=== PATIENT | male | born 1955 | race Caucasian/White ===

== ENCOUNTER → 2016-12-25 | Outpatient (CLI) | payer MEDICARE, OTHER ==
[~2016-12-25] MED LIST: ACHD5005 PO; ASP81TEC PO; HCT25T PO; HYDR118S10 PO; HYDR1TAB66 PO; IBUP800T26 PO; LISI20TA PO; LISI5TAB PO; METO50TA7 PO; MTP25TSR PO; MULT-974 PO; NAPR-243 PO; OMEG1CAP24 PO; ONDA-42 SL; PRAV40TA PO; PRV20T GT; SERT50TA PO; TRZ100T PO
--- OUTSIDE RECORDS SUMMARY | 2016-12-25 10:55 | XMS REPORT | Continuity of Care Document ---
Author Author Interface Organization Interface Address Unknown Phone Unavailable Problems Problem Status Onset Date Classification Date Reported Comments Source Overweight (finding) Active Problem 05/15/2014 <sup>1</sup>Added based on documentation of BMI=26.7. [facility] Medications Medication Details Route Status Patient Instructions Ordering Provider Order Date Source ciprofloxacin 500 mg oral tablet =500 mg, 1 tab, PO, Q12H, X 7 Days, # 14 tab, 1 Refill(s) Inactive [facility] Ciprodex otic suspension 4 Drop, Each Affected Ear, BID, # 7.5 mL, 1 Refill(s) Inactive [facility] Zoloft 100 mg oral tablet mg, tab, PO, Daily Active [facility] Mobic PO, Daily Active [facility] Robaxin mg Active [facility] Medrol Dosepak Active [facility] flax Active [facility] Fish Oil PO Active [facility] multivitamin Daily Active [facility] Toprol XL PO, Daily Active [facility] tizanidine PO Active [facility] Benadryl Active [facility] gabapentin 300 mg oral capsule mg, cap, PO, TID Active [facility] acetaminophen-hydrocodone 325 mg-7.5 mg oral tablet tab, PO, Q6H Active [facility] Aspirin Low Dose 81 mg oral tablet Active [facility] trazodone PO Active [facility] naproxen PO Active [facility] ibuprofen Active [facility] Allergies, Adverse Reactions, Alerts Substance Category Reaction Severity Reaction type Status Date Reported Comments Source meperidine drug allergy Allergy Active <sup>1</sup>Causes GI distress [facility] Immunizations Immunization Date Given Site Status Last Updated Comments Source Results Order Name Results Value Reference Range Date Interpretation Comments Source Patient Viewable Results GFR -Yemeni POC null >=60 04/29/2014 <sup>1</sup> Result Note: Resulted by GLB_POC_GFR rule. [facility] Patient Viewable Results GFR Non -Yemeni POC null >=60 04/29/2014 <sup>2</sup >Result Note: Resulted by GLB_POC_GFR rule. [facility] Patient Viewable Results Creatinine POC 0.9 mg/dL 0.6 - 1.3 04/29/2014 [facility] Vital Signs Vital Sign Value Date Comments Source Heart Rate 78 bpm 04/21/2014 [facility] Temperature Oral 98.5 [degF] 04/21/2014 [facility] Diastolic BP 89 mmHg 2013 [facility] Systolic BP 137 mmHg 2013 [facility] Heart Rate 72 bpm 04/16/2014 [facility] Temperature Oral 98.5 [degF] 04/16/2014 [facility] Diastolic BP 83 mmHg 2013 [facility] Systolic BP 137 mmHg 2013 [facility] BP Site Right Arm </br>(04/16/2014 13:38:00) <sup> </sup> 04/16/2014 [facility] Cuff Size Adult Regular Cuff </br>(04/16/2014 13:38:00) <sup> </sup> 04/16/2014 [facility] Resp. Rate 16 BRMIN 2013 [facility] Systolic BP 133 mmHg 2013 [facility] Heart Rate 80 bpm 04/29/2014 [facility] Cuff Size Adult Large Cuff </br>(04/29/2014 15:10:00) <sup> </sup> 04/29/2014 [facility] BP Site Left Arm </br>(04/29/2014 15:10:00) <sup> </sup> 04/29/2014 [facility] Diastolic BP 85 mmHg 2013 [facility] Temperature Oral 98.8 [degF] 04/29/2014 [facility] Encounters Location Location Details Encounter Type Encounter Number Reason For Visit Attending Provider ADM Date DC Date Status Source Procedures Procedure Code Date Perfomer Comments Source
--- NOTE | 2016-12-25 12:31 | Diagnostic Imaging Report ---
PROCEDURE: CT lumbar spine without contrast. TECHNIQUE: Multiple contiguous axial images were obtained through the lumbar spine without the use of intravenous contrast. Sagittal and coronal reformations were then performed. INDICATION: Back pain. FINDINGS: There is postsurgical change with anterior fusion, cage placement, and interbody osseous bridging seen involving levels L2 through L5 vertebral bodies. At these levels, there are also transpedicular screws with connecting rods seen. There is a screw that appears to have been removed with two screw tracts seen through the transpedicular region on the right side at the L4 level. Bone graft material is also seen around the posterior elements on the right side. There is also laminectomy performed at these levels from L2/3 to L4/5. The right L3/4 and L4/5 facet joints demonstrate osseous fusion. There is fused osseous graft also bridging the remaining posterior elements on the right side of L2 and L3. On the left, no definitive osseous bridging is seen except the left facet joint at L4/5. At L2/3, there is remaining posterior osteophyte from the lower endplate of L2 to the right side of the midline with possible underlying spinal canal stenosis at this level, just above and laminectomy. The vertebral body heights are preserved. There is vacuum phenomenon at L5/S1. No significant disc height loss at any level. There is posterior osteophyte formation at L5/S1 with calcified annulus along the left foramen. There is a suggestion of bilateral foraminal stenosis at L5/S1 of [id number] degree. IMPRESSION: 1. Postsurgical anterior and posterior fusion with laminectomy involving L2 through L5 levels. 2. There is a diffuse disc bulge at L5/S1 level with no obvious high-grade spinal canal stenosis on this study without intrathecal contrast. The foramina at this level demonstrate [id number] stenosis bilaterally. 3. There is remaining posterior osteophyte at the L2/3 level with a question of spinal canal stenosis, particularly at the right side of the spinal canal at this level. Dictated by: Dictated on workstation # [id number]
== END ==
LOC: RAD 10:51
PROVIDERS: ATTEND Orthopaedic Surgery Orthopaedic Surgery of the Spine
DX: Z48.89 Encounter for other specified surgical aftercare (principal); Z98.1 Arthrodesis status
CPT/HCPCS: 72131

== ENCOUNTER → 2017-01-30 | Outpatient (CLI) | payer MEDICARE, OTHER ==
--- OUTSIDE RECORDS SUMMARY | 2017-01-30 10:07 | XMS REPORT | Continuity of Care Document ---
Author Author Ashanti Burrell Address Unknown Phone Unavailable Care Team Providers Care Video Producer Name Role Phone [employer] Unavailable Unavailable Problems Problem Status Onset Date Classification Date Reported Comments Source Overweight (finding) Active Problem 05/15/2014 1Added based on documentation of BMI=26.7. [facility] Medications Medication Details Route Status Patient Instructions Ordering Provider Order Date Source flax Active [facility] Fish Oil PO Active [facility] multivitamin Daily Active [facility] Toprol XL PO, Daily Active [facility] tizanidine PO Active [facility] Benadryl Active [facility] gabapentin 300 mg oral capsule mg, cap, PO, TID Active [facility] acetaminophen-hydrocodone 325 mg-7.5 mg oral tablet tab, PO, Q6H Active [facility] Aspirin Low Dose 81 mg oral tablet Active [facility] trazodone PO Active [facility] naproxen PO Active [facility] ibuprofen Active [facility] ciprofloxacin 500 mg oral tablet =500 mg, 1 tab, PO, Q12H, X 7 Days, # 14 tab, 1 Refill(s) Inactive [facility] Ciprodex otic suspension 4 Drop, Each Affected Ear, BID, # 7.5 mL, 1 Refill(s) Inactive [facility] Zoloft 100 mg oral tablet mg, tab, PO, Daily Active [facility] Mobic PO, Daily Active [facility] Robaxin mg Active [facility] Medrol Dosepak Active [facility] Allergies, Adverse Reactions, Alerts Substance Category Reaction Severity Reaction type Status Date Reported Comments Source meperidine drug allergy Allergy Active 1Causes GI distress [facility] Immunizations Results Order Name Results Value Reference Range Date Interpretation Comments Source Patient Viewable Results GFR -Kosovan POC null >=60 04/29/2014 1Result Note: Resulted by GLB_POC_GFR rule. [facility] Vital Signs Vital Sign Value Date Comments Source Systolic BP 133 mmHg 2013 [facility] Heart Rate 80 bpm 04/29/2014 [facility] Cuff Size Adult Large Cuff </br>(04/29/2014 15:10:00) <sup> </sup> 04/29/2014 [facility] BP Site Left Arm </br>(04/29/2014 15:10:00) <sup> </sup> 04/29/2014 [facility] Diastolic BP 85 mmHg 2013 [facility] Temperature Oral 98.8 [degF] 04/29/2014 [facility] Heart Rate 78 bpm 04/21/2014 [facility] Temperature Oral 98.5 [degF] 04/21/2014 [facility] Diastolic BP 89 mmHg 2013 [facility] Systolic BP 137 mmHg 2013 [facility] Heart Rate 72 bpm 04/16/2014 [facility] Temperature Oral 98.5 [degF] 04/16/2014 [facility] Diastolic BP 83 mmHg 2013 [facility] Systolic BP 137 mmHg 2013 [facility] BP Site Right Arm </br>(04/16/2014 13:38:00) <sup> </sup> 04/16/2014 [facility] Cuff Size Adult Regular Cuff </br>(04/16/2014 13:38:00) <sup> </sup> 04/16/2014 [facility] Resp. Rate 16 BRMIN 2013 [facility] Encounters Procedures Plan of Care Social History Assessment and Plan Family History Value Date Source Advance Directives Order Name Results Value Date Source
--- NOTE | 2017-01-31 08:32 | ECHOCARDIOGRAPHY REPORT ---
PROCEDURE PHYSICIAN: BRITNEY PEARSON DATE OF PROCEDURE: 01/30/2017 TWO DIMENSIONAL ECHOCARDIOGRAM REPORT PRIMARY PHYSICIAN: OTHER PHYSICIAN: REFERRING PHYSICIAN: Dr. العلي ORDERING PHYSICIAN: INDICATION FOR THE PROCEDURE: 1. Chest pain. 2. Dyspnea. MEASUREMENTS DERIVED VALUES LV DIAMETER (LAX) NORMALS NORMALS Diastolic 5.4 (3.6-5.2) Eject. Fract. 60% (60%+/-6%) Systolic (2.3-3.9) Diastolic Vol. % Shortening (0.22-0.42) Systolic Vol. Aortic Root IVS THICKNESS Diastolic 1 (0.6-1.1) LVPW THICKNESS Diastolic 1 (0.6-1.1) LA DIAMETER Systolic 3.5 (2.1-3.7) FINDINGS: 1. Technical quality is good. 2. The left ventricle is normal in size with normal contractility. Systolic function appeared to be normal. Estimated ejection fraction 60%. 3. The left atrium is normal in size. No clot or thrombus were seen within the left atrium. 4. The right atrium and right ventricle are normal in size. No clot or thrombus were seen within the right side. 5. Mitral valve is normal in morphology with mild mitral regurgitation noted by color Doppler flow. No mitral valve prolapse. No mitral valve stenosis. 6. Aortic valve leaflets were not well visualized. No significant aortic stenosis or regurgitation was seen. 7. Tricuspid valve is normal in morphology with mild tricuspid regurgitation noted by color Doppler flow. Doppler across tricuspid valve estimated pulmonary artery pressure of 17+ right atrial pressure. 8. Pulmonic valve is functioning normally. 9. No pericardial effusion. IN CONCLUSION: 1. Normal left ventricular size and systolic function. Estimated ejection fraction is 60%. 2. Mild mitral and tricuspid regurgitation. 3. Estimated pulmonary artery pressure of 25 mmHg. Job ID: [id number] Dictated Date: 01/30/2017 15:59:32 Monotype Setter Date: 01/31/2017 08:10:48 / tbk
== END ==
LOC: CARD 10:04
PROVIDERS: ATTEND Internal Medicine Cardiovascular Disease
DX: R07.9 Chest pain, unspecified (principal); E78.2 Mixed hyperlipidemia; R06.00 Dyspnea, unspecified; R00.2 Palpitations; I10 Essential (primary) hypertension
CPT/HCPCS: 93306

== ENCOUNTER → 2018-04-18 | Outpatient (CLI) | payer MEDICARE, OTHER ==
[2018-04-18 10:43] LABS: AMPHETAMINE SCREEN, URINE NEGATIVE (NEGATIVE); BARBITURATE SCREEN URINE NEGATIVE (NEGATIVE); BENZODIAZEPINES SCREEN URINE NEGATIVE (NEGATIVE); CANNABINOID SCREEN, URINE POSITIVE (NEGATIVE); COCAINE SCREEN URINE NEGATIVE (NEGATIVE); METHADONE STAT NEGATIVE (NEGATIVE); METHAMPHETAMINE SCREEN URINE S NEGATIVE (NEGATIVE); OPIATE SCREEN URINE POSITIVE (NEGATIVE); OXYCODONE STAT NEGATIVE (NEGATIVE); PROPOXYPHENE STAT NEGATIVE (NEGATIVE); TRICYCLIC ANTIDEPRESSANTS SCRE NEGATIVE (NEGATIVE)
== END ==
LOC: LAB 09:55
PROVIDERS: ATTEND Physician Assistant
DX: Z51.81 Encounter for therapeutic drug level monitoring (principal); Z79.891 Long term (current) use of opiate analgesic
CPT/HCPCS: 80306

== ENCOUNTER → 2018-04-18 | Outpatient (CLI) | payer MEDICARE, OTHER ==
[2018-04-18 10:53] LABS: ALANINE AMINOTRANSFERASE 23 U/L (0-55); ALBUMIN 4.5 GM/DL (3.2-4.5); ALKALINE PHOSPHATASE 71 U/L (40-136); BILIRUBIN,TOTAL 0.5 MG/DL (0.1-1.0); BUN/CREATININE RATIO 20; CALCIUM 9.9 MG/DL (8.5-10.1); CARBON DIOXIDE 21 MMOL/L (21-32); CHLORIDE 107 MMOL/L (98-107); CHOLESTEROL 151 MG/DL (< 200); CREATININE SERUM 0.91 MG/DL (0.60-1.30); GFR ESTIMATED > 60; GLUCOSE 105 MG/DL (70-105); HDL CHOLESTEROL 46 MG/DL (40-60); POTASSIUM 4.5 MMOL/L (3.6-5.0); SODIUM 138 MMOL/L (135-145); TOTAL PROTEIN 7.4 GM/DL (6.4-8.2); TRIGLYCERIDES 94 MG/DL (<150); VLDL CHOLESTEROL 19 MG/DL (5-40)
== END ==
LOC: LAB 09:58
PROVIDERS: ATTEND Physician Assistant
DX: I10 Essential (primary) hypertension (principal); E78.5 Hyperlipidemia, unspecified
CPT/HCPCS: 36415; 80053; 80061

== ENCOUNTER → 2018-11-08 | Outpatient (CLI) | payer MEDICARE, OTHER ==
--- NOTE | 2018-11-08 09:27 | Diagnostic Imaging Report ---
PROCEDURE: CT abdomen and pelvis without contrast. TECHNIQUE: Multiple contiguous axial images were obtained through the abdomen and pelvis without the use of intravenous contrast. INDICATION: Microhematuria. Difficulty urinating. COMPARISON: None FINDINGS: Included portions of lung bases are clear. CT abdomen: Normal appendix is identified. Small bowel loops are nondistended. No renal or ureteral calculi seen on either side. There is no hydroureteronephrosis or other evidence of obstruction on either side. No focal renal mass type lesions are seen on this noncontrast exam. The adrenal glands, spleen, pancreas, and liver have an unremarkable noncontrast CT appearance as well. There is no loculated fluid collection, free fluid, nor free air within the abdomen. No abnormal mesenteric or retroperitoneal adenopathy is seen. There is mild scattered calcified aortic atherosclerosis. Bony structures show postsurgical changes in the lumbosacral spine. CT pelvis: Urinary bladder is unopacified. No calculi are seen within urinary bladder. There is no loculated fluid collection, free fluid, nor free air within the pelvis. No abnormal lymph nodes are seen. Bony structures show no acute abnormalities. IMPRESSION: 1. Unremarkable noncontrast CT of the kidneys and bilateral renal collecting systems. Dictated by: Dictated on workstation # [id number]
== END ==
LOC: RAD 08:50
PROVIDERS: ATTEND Urology
DX: R31.29 Other microscopic hematuria (principal); R39.198 Other difficulties with micturition
CPT/HCPCS: 74176

== ENCOUNTER → 2019-02-28 | Outpatient (CLI) | payer MEDICARE, OTHER ==
--- NOTE | 2019-02-28 19:13 | Diagnostic Imaging Report ---
PROCEDURE: US Abdomen, limited. TECHNIQUE: Multiple realtime grayscale images were obtained over the abdomen in various projections. INDICATION: Urinary frequency FINDINGS: There are no prior examinations of the bladder available for comparison. The CT of the abdomen/pelvis exam of 11/08/2018 failed to show any sign of the unopacified urinary bladder. The bladder is only partially filled and consequently not well evaluated. There is no obvious bladder abnormality evident. Neither ureteral jet was identified. The prevoid bladder volume was approximately 144 cc. Following voiding there was only 11 cc of urine within the bladder. IMPRESSION: 1. There is no obvious bladder abnormality evident. 2. There was good clearing of the urine from the bladder with a less than 10% residual volume of urine following voiding. Dictated by: Dictated on workstation # [id number]
== END ==
LOC: RAD 12:51
PROVIDERS: ATTEND Physician Assistant
DX: N40.0 Benign prostatic hyperplasia without lower urinary tract symptoms (principal)
CPT/HCPCS: 76705

== ENCOUNTER → 2022-09-27 | Outpatient (CLI) | payer MEDICARE, OTHER | LOC: CARD 08:22 | PROVIDERS: ATTEND Internal Medicine Cardiovascular Disease | DX: I11.9 Hypertensive heart disease without heart failure (principal); I35.1 Nonrheumatic aortic (valve) insufficiency | CPT/HCPCS: 93306 ==

== ENCOUNTER → 2022-12-05 | Outpatient (CLI) | payer MEDICARE, OTHER ==
[2022-12-05 14:24] LABS: ABSOLUTE RETIC # 110 10e9/uL (24-90); BASOPHILS # (AUTO) 0.1 10^3/uL (0.0-0.1); BASOPHILS % (AUTO) 0 % (0-10); EOSINOPHILS # (AUTO) 0.2 10^3/uL (0.0-0.3); EOSINOPHILS % (AUTO) 1 % (0-10); HEMATOCRIT 47 % (40-54); HEMOGLOBIN 16.6 g/dL (13.3-17.7); LYMPHOCYTES # (AUTO) 4.3 10^3/uL (1.0-4.0); LYMPHOCYTES % (AUTO) 34 % (12-44); MEAN CORPUSCULAR HEMOGLOBIN 31 pg (25-34); MEAN CORPUSCULAR HGB CONC 35 g/dL (32-36); MEAN CORPUSCULAR VOLUME 89 fL (80-99); MEAN PLATELET VOLUME 9.5 fL (9.0-12.2); MONOCYTES # (AUTO) 0.9 10^3/uL (0.0-1.0); MONOCYTES % (AUTO) 7 % (0-12); NEUTROPHILS % (AUTO) 56 % (42-75); PLATELET COUNT 278 10^3/uL (130-400); RETICULOCYTE % 2.07 % (0.50-2.40); WHITE BLOOD COUNT 12.4 10^3/uL (4.3-11.0)
[2022-12-05 14:59] LABS: LYMPHOCYTES % (MANUAL) 34 %; MONOCYTES % (MANUAL) 7 %; NEUTROPHILS % (MANUAL) 59 %; RBC MORPH NORMAL
== END ==
LOC: LAB 13:52
PROVIDERS: ATTEND Internal Medicine
DX: D72.829 Elevated white blood cell count, unspecified (principal)
CPT/HCPCS: 36415; 85007; 85027; 85045; 85055